=== PATIENT | female | born 2000 | race Caucasian/White ===

== ENCOUNTER 2020-06-06 15:18 | Emergency (ER) | payer BC, SELFPAY ==
--- NOTE | ~2020-06-06 | CT_ITS ---
EXAMINATION: CT abdomen pelvis w con DATE: 06/06/2020 16:26 INDICATION: Right abdominal pain. TECHNIQUE: Computed tomography (CT) of the abdomen and pelvis was performed with 100 mL Omnipaque 350 intravenous contrast. Automated exposure control and iterative reconstruction technique were employe d. The dose-length product was 402.37 mGy-cm. COMPARISON: None. FINDINGS: The visualized portions of the lung bases demonstrate mild atelectasis. No pleural effusion . The heart size is normal. No pericardial effusion. Partially visualized is a mildly enlarged right hilar lymph node. The liver, gallbladder, spleen, pancreas, adrenal glands, and right kidney are norm al. There is a 5 mm cyst in left kidney. There is a tampon in the vagina. There are no dilated loops of bowel. The appendix is normal. There is trace pelvic ascites with peritoneal enhancement, likely a n exudate. There are no pathologically enlarged lymph nodes. There is fat stranding in the greater om entum on the right. There are chronic bilateral L5 pars defects. There is 2 mm anterolisthesis of L5 on S1. IMPRESSION: 1. Fat stranding in the greater omentum on the right, likely inflammation. 2. Mild right hilar lymphadenopathy, likely reactive. Reviewed, dictated and finalized at location A. [employer]
--- NOTE | 2020-06-06 15:25 | ED.ABDPAIN ---
HPI - Abdominal Pain General Chief Complaint: Abdominal Pain Stated Complaint: right abd pain Time Seen by Provider: 06/06/20 15:24 History of Present Illness HPI narrative: 19 yo female with no PMH presents to the ED with abdominal pain. She was awoke from sleep around 1330 today with severe RUQ pain. The pain radiates to the right flank. Worse with movement and breathing. Mild nausea when the pain is severe. She has never had this pain before. No prior abdominal surgeries. Unsure if family history of gall bladder disease. She has recently begun and evaluation for lower abdominal pain through her PCP. She is currently on her period. Related Data Home Medications Medication Instructions Recorded Confirmed bupropion HCl 100 mg PO BID 06/06/20 escitalopram oxalate 20 mg DAILY 06/06/20 06/06/20 norethindrone-e.estradiol-iron [Lo tablet 06/06/20 Loestrin Fe] Allergies Allergy/AdvReac Type Severity Reaction Status Date / Time No Known Allergies Allergy Verified 06/06/20 15:46 Review of Systems Review of Systems: All systems reviewed & are unremarkable except as noted in HPI and below Constitutional: Constitutional: Denies chills, Denies fever(s) and Denies weakness Cardiovascular: Cardiovascular: Denies chest pain Respiratory: Respiratory: Denies dyspnea Gastrointestinal: Gastrointestinal: Reports abdominal pain, Denies constipation, Denies diarrhea, Reports nausea and Denies vomiting Genitourinary: Genitourinary: Reports hematuria and Denies dysuria Musculoskeletal: Musculoskeletal: Denies back pain Neurologic: Denies weakness [facility] Past Medical History Medical History Healthy female adult Surgical History Surgical History History of tonsillectomy Exam Const: General: healthy appearing, no acute distress and alert Orientation/consciousness: patient oriented x3 HENMT: Head: normal to inspection Neck: Neck: normal visual inspection and no lymphadenopathy Chest: Chest palpation & inspection: no tenderness Resp: Effort & Inspection: normal respiratory effort Auscultation: clear to auscultation bilaterally, no rales, no rhonchi and no wheezes Cardio: Jugular venous distension: no JVD Rate: regular rate Rhythm: regular rhythm Heart sounds: no murmurs GI: Inspection: non-distended GI Palp: Yes Soft to palpation and Yes Tenderness to palpation present (GI) (RUQ, suprapubic) Skin: General skin exam: normal color Neuro: General: patient oriented x3, moves all extremities, no focal motor deficits and CN's II-XI intact bilaterally Speech: normal speech Gait exam (Neuro): Normal gait present Extrem: General: no edema Psych: Appearance: well kempt Affect: normal affect Course Vital Signs Vital signs: Vital Signs Pulse Oximetry 100 06/06/20 15:41 Temperature 36.5 C 06/06/20 15:43 Pulse Rate 101 H 06/06/20 17:20 Respiratory Rate 17 06/06/20 17:20 Blood Pressure 110/70 06/06/20 17:20 Pulse Oximetry 98 06/06/20 17:20 MDM - Abdominal Pain MDM Narrative Medical decision making narrative: While in the ED she received a call from her PCP saying that she has chlamydia. CT shows inflammation of the omentum. This is likely related to PID. I will treat her for this. Differential Diagnosis Differential diagnosis: Likely pancreatitis and other (UTI, cholecystitis) Medical Records Attestation: I reviewed the patient's medical records. Lab Data Attestation: I reviewed the patient's lab results. Result diagrams: 06/06/20 15:39 06/06/20 15:39 Labs: Lab Results 06/06/20 06/06/20 06/06/20 Range/Units 15:32 15:39 15:39 WBC 8.9 (4.5-10.0) K/mm3 RBC 4.30 (4.2-5.4) M/mm3 Hgb 13.6 (12.0-15.0) g/dL Hct 40.0 (37.0-47.0) % MCV 93.0 (80-100) fl MCH 31.6 (26-34) pg MCHC 34.0 (32-36) g/dl RDW 11
[2020-06-06 15:41] VITALS: O2SAT 100
[2020-06-06 15:42] LABS: Add Urine Microscopic? YES; Appearance Urine Clear (Clear); Bilirubin Urine Negative (Negative); Blood Urine 3+ (Negative); Color Urine Yellow (Yellow); Glucose Urine UA Negative (Negative); Ketones Urine Trace mg/dL (Negative); Leukocyte Esterase Ur 1+ LEU/UL (Negative); Mucus Urine Heavy /lpf; Nitrate Urine Negative (Negative); Protein Urine 1+ mg/dL (Negative); Squamous Epithelial Cell Urine Few /hpf (Few)
[2020-06-06 15:43] VITALS: BP 113/66; PULSE 107; RESP 16; TEMP 36.5; O2SAT 100
[2020-06-06 15:45] VITALS: O2SAT 99
[2020-06-06 15:45] LABS: Specific Grav Ur 1.031 (1.001-1.035)
[2020-06-06 15:46] LABS: Basophils Percent Auto 0.3 % (0.2-1.2); Eosinophils Absolute Auto 0.1 K/mm3 (0-0.3); Hemoglobin 13.6 g/dL (12.0-15.0); Immature Granulocyte Absolute 0.03 K/mm3 (0.00-0.031); Immature Granulocyte Percent A 0.3 % (0-0.5); Lymphocytes Absolute Auto 1.33 K/mm3 (0.9-3.2); Lymphocytes Percent Auto 14.9 % (18.3-44.2); Mean Corpuscular Hemoglobin 31.6 pg (26-34); Mean Platelet Volume 9.8 fl (7.4-10.4); Monocytes Absolute Auto 0.6 K/mm3 (0.1-0.6); Monocytes Percent Auto 6.7 % (2.6-8.5); Neutrophils Absolute Auto 6.9 K/mm3 (1.3-6.7); Neutrophils Percent Auto 76.8 % (45.5-73.1); Platelet Count Result 320 k/mm3 (150-375); Red Cell Distribution Width 11.3 % (11.5-14.5); White Blood Count 8.9 K/mm3 (4.5-10.0)
[2020-06-06 15:59] LABS: Alanine Aminotransferase 21 U/L (4-35); Albumin Level 4.3 g/dL (3.7-5.6); Alkaline Phosphatase 111 U/L (45-116); Anion Gap 8 mmol/L (8-16); Aspartate Amino Transferase 31 U/L (14-36); Bilirubin,Total 0.8 mg/dL (0.2-1.3); Blood Urea Nitrogen 7 mg/dL (8-21); Calcium 9.4 mg/dL (8.9-10.7); Carbon Dioxide 26 mmol/L (22-30); Chloride 105 mmol/L (98-107); Estimated CRCL calculation 101 ml/min; Estimated Glomerular Filt Rate > 60; Glucose 100 mg/dL (65-105); Lipase 34 U/L (23-300); Sodium 139 mmol/L (134-143)
[2020-06-06] MEDS: cefTRIAXone 1 GM VIAL 0.5 GM IM (17:19)
[2020-06-06] MEDS: DOXYCYCLINE HYCLATE 100 MG TABLET PO (17:19)
[2020-06-06 17:20] VITALS: BP 110/70; PULSE 101; RESP 17; O2SAT 98
[2020-06-06] MEDS: KETOROLAC 30 MG/ML VIAL (*BKC) IV PUSH (17:20)
== END 2020-06-06 17:47 | disposition home or self-care (01) ==
PROVIDERS: Emergency Provider Emergency Medicine; PCP Physician Assistant
DX: N73.9 Female pelvic inflammatory disease, unspecified (principal)
CPT/HCPCS: 36415; 74177; 80053; 81001; 81025; 83690; 85025; 87086; 87088; 96372; 96374; 99284; A9270; J0696; J1885; Q9967

== ENCOUNTER 2023-08-20 14:56 | Emergency (ER) | payer BC, SELFPAY ==
[2023-08-20 15:03] VITALS: BP 140/95; PULSE 89; RESP 19; TEMP 37.1; O2SAT 99
--- NOTE | 2023-08-20 15:16 | ED.DENTAL ---
HPI - Dental/Oral General Chief complaint: Dental/Oral Stated complaint: tooth extraction pain History of Present Illness HPI Narrative: 20-year-old female history of anxiety and depression who is 7 weeks presents to emergency room for evaluation of dental pain. Patient states that she was at the dentist earlier today and had a partial tooth removed. Patient states that the dentist did not prescribe any pain medications. Related Data Home Medications Medication Instructions Recorded Confirmed bupropion HCl 100 mg tablet,12 hr 100 mg PO BID 06/06/20 sustained-release escitalopram oxalate 20 mg tablet 20 mg DAILY 06/06/20 06/06/20 norethindrone 1 mg-ethinyl tablet 06/06/20 estradiol 10 mcg (24)-iron 10 mcg(2) tablet (Lo Loestrin Fe) Allergies Allergy/AdvReac Type Severity Reaction Status Date / Time No Known Allergies Allergy Verified 08/20/23 14:57 Review of Systems Review of Systems: CONSTITUTIONAL: Denies fever, chills, or sweats. EYES: Denies visual changes, redness, or discharge. ENT: Denies rhinorrhea, congestion, sore throat, or otalgia. CARDIOVASCULAR: Denies chest pain, palpitations, or edema. RESPIRATORY: Denies cough or dyspnea. GASTROINTESTINAL: Denies abdominal pain, nausea, vomiting, or diarrhea. GENITOURINARY: Denies dysuria or hematuria. SKIN: Denies rash or itching. MUSCULOSKELETAL: Denies back pain, joint pain, or myalgia. NEUROLOGIC: Denies headache, numbness, dizziness, or weakness. PSYCHIATRIC: Denies anxiety or depression. PMFSH Past Medical History Medical History Healthy female adult Surgical History Surgical History History of tonsillectomy Exam Narrative: GENERAL: Well-appearing, well-nourished, no physical limitations, and in acute distress. HEAD: Normocephalic, atraumatic. EYES: Conjunctivae normal, PERRLA and EOMI. ENT: Dental gauze noted to right lower molar partially saturated CHEST: Clear to auscultation. No respiratory distress. No wheezes rales or rhonchi. HEART: Regular rate and rhythm. No murmur heard. Normal peripheral pulses. EXTREMITIES: Normal range of motion. No edema. No clubbing or cyanosis SKIN: Warm, dry, no rash. No noted wounds NEURO: No focal deficits. Alert and oriented x3. MAEW. CN's II-XI intact bilaterally, normal gait PSYCH: Cooperative. Normal mood and affect. Course Vital Signs Vital signs: Vital Signs Temperature 37.1 C 08/20/23 15:03 Pulse Rate 89 08/20/23 15:03 Respiratory Rate 19 08/20/23 15:03 Blood Pressure 140/95 H 08/20/23 15:03 Pulse Oximetry 99 08/20/23 15:03 Temperature 37.1 C 08/20/23 15:03 Pulse Rate 89 08/20/23 15:03 Respiratory Rate 19 08/20/23 15:03 Blood Pressure 140/95 H 08/20/23 15:03 Pulse Oximetry 99 08/20/23 15:03 Discharge Plan Discharge Clinical Impression: Toothache Patient Disposition: Home, Self-Care Condition: Stable Instructions: Antibiotic Form, Toothache (ED) Additional Instructions: Your prescriptions have been sent to [facility] per your dentist Dr. Virk Prescriptions: No Action bupropion HCl 100 mg tablet sustained-release 12 hr 100 mg PO BID escitalopram oxalate 20 mg tablet 20 mg DAILY Lo Loestrin Fe 1 mg-10 mcg (24)/10 mcg (2) tablet doxycycline hyclate 100 mg tablet 100 mg PO DAILY Qty: 28 0RF Follow-up/Referrals: Poonam,MANOHAR Webb [Primary Care Provider] - Time of Disposition: 15:16
== END 2023-08-20 15:48 | disposition home or self-care (01) ==
PROVIDERS: Emergency Provider Nurse Practitioner Family; PCP Physician Assistant
DX: O99.611 Diseases of the digestive system complicating pregnancy, first trimester (principal); K08.89 Other specified disorders of teeth and supporting structures; Z98.818 Other dental procedure status; Z3A.01 Less than 8 weeks gestation of pregnancy
CPT/HCPCS: 99281